=== PATIENT | female | born 1990 | race Caucasian/White ===

== ENCOUNTER 2018-03-05 06:39 | Inpatient (IN) ==
[~2018-03-05 06:39] MED LIST: D5 1/2 NS 1000 ML 1,000 ML IV ONE; D5 1/2 NS 1L W PITOCIN 20 UNITS/L 0 UNITS/0 ML BAG IV ONE; D5LR 1L W PITOCIN 10 UNITS/L 10 UNITS/1,000 ML BAG IV ONE; PITOCIN ONE
[2018-03-05] MEDS ORDERED: D5 1/2 NS 1000 ML 1,000 ML IV SCH (06:40)
[2018-03-05] MEDS ORDERED: PITOCIN IVP ONE (06:40)
[2018-03-05] MEDS ORDERED: PHENERGAN INJ 25 MG IV PRN ×2 (06:40→11:18)
[2018-03-05] MEDS ORDERED: D5LR 1L W PITOCIN 10 UNITS/L 10 UNITS/1,000 ML BAG IV PRN (06:40)
[2018-03-05] MEDS ORDERED: MORPHINE SULFATE INJ 2 MG INJ IVP PRN (06:40)
[2018-03-05] MEDS ORDERED: NUBAIN INJ 200 MG VIAL MULTIDOSE IVP PRN (06:40)
[2018-03-05] MEDS ORDERED: REGLAN INJ 10 MG VIAL IVP PRN ×2 (06:40→12:48)
--- NOTE | 2018-03-05 07:10 | DR.OB ---
OB Quick Note - Assessment/Plan Assessment/Plan: L&D 03/05/18 at 7:00am S-No complaint. O-Afebrile,VSS ETG=178 with good LTV, +accel, no decel. CTX=occasional,mild CVX=3cm/50%/0/VTX AROM with clear fluid. IUPC and FSE placed. A-IUP at 40 1/7 weeks for induction Multiparity P-Begin pitocin induction Anticipate with PP BTL as desired
[2018-03-05] MEDS ORDERED: LR 1000 ML IV 1,000 ML IV ONE ×3 (08:15→12:00)
[2018-03-05] MEDS ORDERED: FENTANYL INJ 100 mcg EPI ONE (08:21)
[2018-03-05] MEDS ORDERED: XYLOCAINE 1 % (PLAIN) ONE (08:25)
[2018-03-05] MEDS ORDERED: ADRENALINE CHL INJ ONE (08:26)
[2018-03-05] MEDS ORDERED: NAROPIN EPIDURAL 0.2% + FENTANYL 90MCG 60 ML EPI ONE (08:26)
[2018-03-05] MEDS ORDERED: NAROPIN EPIDURAL 0.2% 60 ML with FENTANYL INJ 100 mcg 90 MCG IVP SCH ×2 (09:00)
[2018-03-05] MEDS ORDERED: ANCEF 1 GRAM IV PREMIX* 1 G/50 ML BAG IV ONE (11:10)
[2018-03-05] MEDS ORDERED: XYLOCAINE 2% and EPINEPHRINE 1:100,000 ONE (11:32)
[2018-03-05] MEDS ORDERED: D5 1/2 NS 1L W PITOCIN 20 UNITS/L 20 UNITS/1,000 ML BAG IV ONE (12:30)
[2018-03-05] MEDS ORDERED: ZOFRAN INJ 4 MG VIAL IVP PRN (12:48)
[2018-03-05] MEDS ORDERED: DILAUDID INJ IVP PRN (12:48)
[2018-03-05] MEDS ORDERED: BENADRYL INJ 50 MG VIAL IVP PRN (12:48)
[2018-03-05] MEDS ORDERED: PHENERGAN INJ 25 MG IVP PRN (12:48)
[2018-03-05] MEDS ORDERED: PERCOCET TAB 5/325 MG PO PRN (13:22)
[2018-03-05] MEDS ORDERED: AMBIEN PO PRN (13:22)
[2018-03-05] MEDS ORDERED: MILK OF MAGNESIA PO PRN ×2 (13:22)
[2018-03-05] MEDS ORDERED: DERMOPLAST SPRAY TOP PRN (13:22)
[2018-03-05] MEDS ORDERED: ADACEL or BOOSTRIX TDaP VACCINE IM ONE (13:22)
[2018-03-05] MEDS ORDERED: MYLICON TAB 80 MG CHEW PO PRN (13:22)
[2018-03-05] MEDS: D5 1/2 NS 1000 ML 1,000 ML with PITOCIN 20 UNITS IV SCH ×4 (13:33→22:18)
--- NOTE | 2018-03-05 15:15 | DR.OB ---
OB Quick Note - Assessment/Plan Assessment/Plan: Delivery Note [employer] 03/05/18 at 11:07am Patient complete and pushing. Head delivered over intact perineum. No nuchal cord. Nose and mouth bulb suctioned. Body delivered over intact perineum. Cord clamped x 2 and cut. Infant handed to attendant. Cord sent for gases. Placenta delivered spontaneously / intact / 3 vessel cord. No CVX / vaginal / perineal tears. Viable female infant, VTX/OA, wt=7'5" and 8/9, stable to NBN. Mother stable to RR. WHD=174ox.
[2018-03-05] MEDS ORDERED: DIPRIVAN VIAL ONE ×2 (15:32→15:34)
[2018-03-05] MEDS ORDERED: VERSED ONE (15:34)
[2018-03-05] MEDS ORDERED: TORADOL 30 MG VIAL ONE (15:34)
[2018-03-05] MEDS ORDERED: NORCURON INJ 10 MG VIAL ONE (15:34)
[2018-03-05] MEDS ORDERED: ROBINUL ONE (15:34)
[2018-03-05] MEDS ORDERED: NEOSTIGMINE INJ ONE (15:34)
[2018-03-05] MEDS ORDERED: ULTANE GAS IN ONE (15:34)
[2018-03-05] MEDS ORDERED: ZOFRAN INJ 4 MG VIAL ONE (15:34)
[2018-03-05] MEDS ORDERED: QUELICIN (OR ANECTINE) ONE (15:34)
[2018-03-05] MEDS: MOTRIN TAB 800 MG PO PRN (16:48)
[2018-03-05] MEDS: ZANTAC PO SCH (20:21)
[2018-03-05] MEDS ORDERED: COLACE CAP 100 MG PO SCH (21:00)
[2018-03-06] MEDS: MOTRIN TAB 800 MG PO PRN ×2 (02:29→12:26)
[2018-03-06 05:20] LABS: HEMATOCRIT 28.6 % (36.0-47.0)
[2018-03-06] MEDS: D5 1/2 NS 1000 ML 1,000 ML with PITOCIN 20 UNITS IV SCH ×2 (05:29)
[2018-03-06 05:35] LABS: HEMOGLOBIN 10.2 g/dL (12.0-16.0)
[2018-03-06] MEDS: ZANTAC PO SCH (08:20)
[2018-03-06] MEDS ORDERED: PRENATAL PLUS PO SCH (09:00)
[2018-03-06 12:17] VITALS: BP 118/75
[2018-03-06] MEDS ORDERED: ADACEL or BOOSTRIX TDaP VACCINE IM ONE (13:16)
[2018-03-06] MEDS ORDERED: BACTROBAN TOPICAL OINT TOP SCH (14:00)
== END 2018-03-06 14:15 | disposition home or self-care (01) | DRG 798 ==
LOC: LD 06:39 → MED/SURG 13:37
PROVIDERS: ADMIT Specialist; ATTEND Specialist
DX: Z3A.40 40 weeks gestation of pregnancy; O80 Encounter for full-term uncomplicated delivery; Z37.0 Single live birth; Z30.2 Encounter for sterilization; Z23 Encounter for immunization
CPT/HCPCS: 36415; 59409; 80048; 80307; 81001; 85014; 85018; 85025; 86592; 86850; 86900; 86901; 90715; A4216; A4222; S0197; G0434; J0171; J0330; J0690; J1885; J2001; J2250; J2405; J2590; J2704; J2710; J3010; J3490; J7120; S5010